=== PATIENT | male | born 1955 | race American Indian/Alaskan Native ===

== ENCOUNTER 2018-12-17 13:55 | Day surgery (SDC) | payer MEDICAID ==
[2018-12-16 08:09] VITALS: BMI 25.7
[2018-12-17 15:01] VITALS: BP 148/82; PULSE 88; RESP 18; TEMP 98; O2SAT 98
[2018-12-17 17:01] LABS: BASO % 0.5 % (0.0-2.0); EOS # 0.1 K/uL (0.0-0.7); HEMOGLOBIN 7.4 g/dL (12.0-18.0); LYMPH # 0.8 K/uL (1.0-4.3); LYMPH % 13.9 % (20.0-40.0); MEAN CELL VOLUME 66.5 fL (80.0-94.0); MEAN CORPUSCULAR HEMOGLOBIN 19.4 pg (27.0-31.0); MEAN CORPUSCULAR HGB CONC 29.2 g/dL (33.0-37.0); MEAN PLATELET VOLUME 7.1 fL (7.2-11.7); MONO # 0.4 K/uL (0.0-0.8); MONO % 7.9 % (0.0-10.0); NEUT # 4.3 K/uL (1.8-7.0); NEUT % 76.7 % (50.0-75.0); NRBC % 0.3 % (0.0-2.0); RBC 3.82 Mil/uL (4.40-5.90); WHITE BLOOD COUNT 5.6 K/uL (4.8-10.8)
--- NOTE | 2018-12-18 12:38 | CARD ---
APPROVED REPORT Date of service: 12/17/2018 EKG Measurement Heart [id number] <Conclusion> Normal sinus rhythm Normal ECG
--- NOTE | 2018-12-18 21:00 | PN ---
DATE: 12/17/2018 The patient went to the hospital for a prostate ultrasound and biopsy, but we have canceled the procedure. See below. SUBJECTIVE: Mr. Hercules is a very pleasant 63-year-old gentleman who has multiple issues. He has some difficulty with understanding. I initially met Mr. Hercules quite sometime ago with an elevated PSA and I have been trying to schedule a prostate biopsy. He is little confused as to our office location despite me speaking to him and giving the address, and speaking to him several times, had some difficulty getting him to return to the office; even now when I am handing him my card with the correct address, he repeats the wrong address of another urologist actually, specifically [address] and [address], but either way; so, I have explained to the patient multiple times that he has an elevated PSA and we have scheduled the patient for a prostate biopsy. In the interim, I am also learning that the patient has been seeing Dr. Archuleta, his general medical doctor who has recommended that he has colonoscopy. We are canceling today the procedure because his hemoglobin and hematocrit are 7 and 22 that was listed on the chart and so therefore, we are not going to proceed with our prostate biopsy (see below), although this could be the source for the anemia, but the patient needs further evaluation from his medical doctor and a GI doctor and medical clearance before we do a biopsy. PAST MEDICAL AND SURGICAL HISTORY: As listed on the chart; otherwise unremarkable. MEDICATIONS: See the list brought with the patient. REVIEW OF SYSTEMS: As listed above, noncontributory. No weight loss that he is aware of, generally reports of reasonable appetite. He is somewhat of a poor historian. PHYSICAL EXAMINATION: GENERAL: Thin male, no apparent distress, currently resting comfortably, appears his stated age. VITAL SIGNS: Noted. LUNGS: Clear. HEART: Normal, S1 and S2. ABDOMEN: Overall soft, nontender. RECTAL: Deferred for now. LABORATORY DATA: See the chart. BUN, creatinine, PSA all noted. DIAGNOSES: Voiding dysfunction, nocturia, decreased force of stream, elevated prostate-specific antigen, and severe anemia. ASSESSMENT: So, we discussed options with the patient and my general recommendation is that the patient have further diagnostic study. I am waiting before we provide anesthesia. It is conceivable that the patient has an otherwise prostate malignancy in the area. We gross hematuria and further workup. We are going to plan criteria. He needs to return to Dr. Archuleta. He needs a health insurance adjuster. He needs the anemia workup and he needs the prostate biopsy. We have to discuss the timing. Given the patient's overall history, I am going to ask them a little extra time. I already spent a long time with the patient working on his schedule today and has some difficulty , but it will be more difficult the time to work on this patient. So, the diagnosis is as mentioned above. PLAN: The patient return to Dr. Archuleta . Guero Sun MD
== END 2018-12-17 16:39 | disposition home or self-care (01) ==
LOC: C.SDS 13:55
PROVIDERS: ATTEND Urology
DX: D64.9 Anemia, unspecified (principal); R97.20 Elevated prostate specific antigen [PSA]; R35.1 Nocturia; Z53.09 Procedure and treatment not carried out because of other contraindication
CPT/HCPCS: 55700; 93005; P000X